=== PATIENT | female | born 1990 | race Caucasian/White ===

== ENCOUNTER 2021-10-02 02:31 | Outpatient (CLI) | payer MEDICAID, SELFPAY | END 2021-10-02 02:32 | disposition home or self-care (01) | LOC: LBO 02:31 | PROVIDERS: Visit Provider Advanced Practice Midwife ==

== ENCOUNTER 2021-10-02 19:10 | Outpatient (REF) | payer MEDICAID, SELFPAY ==
--- NOTE | 2021-10-02 14:30 | PAPFT_PTH ---
PATIENT: Nancy Lindsey LOC: [facility] U#:[id number] AGE/SX: 31/F ROOM: RE10/02/[address]: Dixie Payton CNM : 1990 BED: DIS: 10/02/2021 SPEC #: [id number] RECD: 10/05/21 13:18 STATUS: BLANCA REQ #: [id number] PILLO: 10/02/21 14:[address]: Dixie Payton DEPT: [facility] Cytology RECD BY: Sulema Kumari ENTERED: 10/05/21 13:18 SP TYPE: PAPFT OTHR DR: Unknown,Unknown Tissues: 1 - CX/ENDOCX FOR PAP SMEARS Procedures: PAP THIN PREP/[facility] Screening HPV DNA PROBE Comments: [id number] (CHLAMYDIA/GC)
[2021-10-02 17:52] LABS: *AMPHETAMINES SCREEN URINE Negative (Negative); *BARBITURATES SCREEN URINE Negative (Negative); *BENZODIAZEPINES SCREEN URINE Negative (Negative); Cannabinoids THC Negative (Negative); Cocaine Screen,Urine Negative (Negative); METHADONE URINE SCREEN Negative (Negative); OPIATES URINE SCREEN Negative (Negative)
[2021-10-02 17:55] LABS: Tricyclic Antidepressants Negative (Negative)
[2021-10-07 08:41] LABS: Chlamydia Result Negative (Negative); GC Result Negative (Negative)
[2021-10-08 17:57] LABS: Buprenorphine Negative ng/mL (Cutoff: 5.0); Norbuprenorphine Negative ng/mL (Cutoff: 2.5)
== END 2021-10-02 19:11 | disposition home or self-care (01) ==
LOC: LBN 19:10
PROVIDERS: Visit Provider Advanced Practice Midwife
DX: Z34.91 Encounter for supervision of normal pregnancy, unspecified, first trimester (principal); N89.8 Other specified noninflammatory disorders of vagina; Z3A.12 12 weeks gestation of pregnancy; Z12.4 Encounter for screening for malignant neoplasm of cervix; Z11.51 Encounter for screening for human papillomavirus (HPV); Z11.3 Encounter for screening for infections with a predominantly sexual mode of transmission
CPT/HCPCS: 80307; 87491; 87591; 88142; 87086; 87480; 87510; 87624; 87660

== ENCOUNTER 2021-10-05 01:50 | Outpatient (CLI) | payer MEDICAID, SELFPAY ==
[2021-10-05 16:21] LABS: Kit/Specimen SENT
[2021-10-05 16:31] LABS: Abs Immature Grans 0.03 10^3/uL (0.0-0.06); Absolute Basophil Count 0.03 10^3/uL (0.0-0.2); Absolute Lymphocyte Count 1.71 10^3/uL (1.2-3.4); Absolute Neutrophil Count 7.64 10^3/uL (1.2-6.7); Basophils % 0.3; HCT 35.2 % (36.0-46.0); HGB 11.8 g/dL (11.2-15.7); Immature Grans % 0.3; Lymphocytes % 17.3; MCH 29.8 pg (27.0-33.0); MCHC 33.5 % (32.0-36.0); MCV 89 fL (80-95); MPV 10.3 fL (8.0-11.0); Neutrophils % 77.1; Platelet Count 302 10^3/uL (130-400); RBC 3.96 10^6/uL (3.93-5.22); RDW 11.7 % (11.7-14.6); RDW-SD 37.3 fL; WBC 9.91 10^3/uL (4.4-10.8)
[2021-10-05 17:11] LABS: TSH (W/Ref FT4) 0.26 uIU/mL (0.36-3.74)
[2021-10-05 17:41] LABS: FREE T4 1.11 ng/dL (0.76-1.46)
[2021-10-07 10:20] LABS: Hepatitis B Surface Ag Negative (Negative)
[2021-10-07 11:02] LABS: Hepatitis C Ab w Rflx HCV PCR Negative (Negative)
[2021-10-07 11:17] LABS: HIV-1/2 Ag & Ab Screen Negative (Negative)
[2021-10-07 11:36] LABS: Varicella IgG Antibody Positive (See Note)
[2021-10-07 11:38] LABS: Rubella IgG Ab (UVM) Positive (See Note)
[2021-10-08 18:29] LABS: Syphilis IgG w/Reflex Nonreactive (Nonreactive)
[2021-10-14 01:46] LABS: Result Summary NEGATIVE; Specimen WB Whole Blood
== END 2021-10-05 01:51 | disposition home or self-care (01) ==
LOC: LBO 01:50
PROVIDERS: Visit Provider Advanced Practice Midwife
DX: Z34.91 Encounter for supervision of normal pregnancy, unspecified, first trimester (principal); Z3A.12 12 weeks gestation of pregnancy
CPT/HCPCS: 36415; 86787; 86803; 86850; 86900; 86901; 87340; 87389; 81220; 84439; 84443; 85025; 86762; 86780

== ENCOUNTER → 2021-11-17 00:23 | Outpatient (CLI) | payer MEDICAID, SELFPAY ==
--- NOTE | 2021-11-17 06:45 | DI.US_ITS ---
Exam(s) US OB 2-3 TRIMESTER EXAM: US OB 2-3 TRIMESTER CLINICAL HISTORY: anatomy survey at 18 wks, Z34.90. TECHNIQUE: Transabdominal obstetrical ultrasound performed. COMPARISON: No exams were available for comparison FINDINGS: Number of fetuses: One. position: Variable Placental grade: 1 Placental location: Posterior. No evidence of previa. BIOMETRIC DATA: BPD: 45mm = 19+ 4 weeks HC: 171mm = 19+ 5 weeks AC: 146mm = 19+ 6 weeks FL: 31mm = 19+ 5 weeks Cisterna Magna: 6 mm Cerebellum: 2.0 cm EFW: 311 grms 73% Composite Age: 19+ 5 weeks weeks EDC by US: 08 April 2022 Heart Rate: 157BPM Amniotic fluid : Amount of fluid is within normal limits. ANATOMICAL SURVEY: Four-chambered heart: Unremarkable. LVOT: Unremarkable. RVOT: Unremarkable. Left-sided stomach: Unremarkable. urinary bladder: Unremarkable. Bilateral kidneys: Unremarkable. Three-vessel cord: Unremarkable. Cord insertion: Unremarkable. Umbilical artery velocity: Unremarkable. Posterior fossa:Unremarkable. ventricles: Unremarkable. nose: Unremarkable. lips: Unremarkable. palate: Unremarkable. spine: Unremarkable. Two arms and two legs: Unremarkable. IMPRESSION: 1. size and weight are in the expected range.. 2. Normal anatomic survey. DATA REPOSITORY:
== END ==
PROVIDERS: Visit Provider Advanced Practice Midwife
DX: Z34.92 Encounter for supervision of normal pregnancy, unspecified, second trimester (principal); Z3A.19 19 weeks gestation of pregnancy
CPT/HCPCS: 76805

== ENCOUNTER 2022-01-13 02:41 | Outpatient (CLI) | payer MEDICAID, SELFPAY ==
[2022-01-13 15:33] LABS: HCT 32.5 % (36.0-46.0); HGB 10.6 g/dL (11.2-15.7); MCH 29.9 pg (27.0-33.0); MCHC 32.6 % (32.0-36.0); MCV 92 fL (80-95); MPV 10.2 fL (8.0-11.0); Platelet Count 304 10^3/uL (130-400); RBC 3.55 10^6/uL (3.93-5.22); RDW 12.8 % (11.7-14.6); RDW-SD 42.6 fL; WBC 12.51 10^3/uL (4.4-10.8)
[2022-01-13 15:43] LABS: Glucose,1 Hr (Glucola) 124 mg/dL (80-140)
== END 2022-01-13 02:42 | disposition home or self-care (01) ==
LOC: LBO 02:41
PROVIDERS: Advanced Practice Midwife; Visit Provider Advanced Practice Midwife
DX: Z34.92 Encounter for supervision of normal pregnancy, unspecified, second trimester (principal); Z3A.27 27 weeks gestation of pregnancy
CPT/HCPCS: 36415; 82950; 85027

== ENCOUNTER → 2022-02-09 02:03 | Outpatient (CLI) | payer MEDICAID, SELFPAY ==
--- NOTE | 2022-02-09 07:45 | DI.US_ITS ---
Exam(s) US OB SURESH WEIGHT EXAM: US OB SURESH WEIGHT CLINICAL HISTORY: interval growth,covid,U07.1,O98.513. TECHNIQUE: Transabdominal obstetrical ultrasound performed. COMPARISON: US US OB 2-3 TRIMESTER from 11/17/2021 FINDINGS:: Number of fetuses: One. position: Vertex. Placental location: Anterior no evidence of previa. BIOMETRIC DATA: BPD: 80mm = 32+2 weeks HC: 293mm = 32+2 weeks AC: 283mm = 32+3 weeks FL: 64 mm = 33+1 weeks EFW: 2008 Gms = 81% Composite Age: 30 2+4 weeks EDC: 02 April 2022 Heart Rate: 128BPM Amniotic fluid index: 20.5 Cm. Amount of fluid is visually within normal limits. IMPRESSION: size and weight are within the expected range. DATA REPOSITORY:
== END ==
PROVIDERS: Visit Provider Advanced Practice Midwife
DX: O98.513 Other viral diseases complicating pregnancy, third trimester (principal); U07.1 COVID-19
CPT/HCPCS: 76816

== ENCOUNTER 2022-03-02 09:11 | Outpatient (CLI) | payer MEDICAID, SELFPAY ==
[2022-03-02 14:13] VITALS: BP 117/64; PULSE 77; TEMP 37
[2022-03-02 14:14] VITALS: BP 117/64; PULSE 77
--- NOTE | 2022-03-02 15:50 | W.OBNST ---
Date of service: 03/02/22 Time of Service: 15:50 NST Evaluation Reason for NST Reasons for Nonstress Test: DECREASED MOVEMENT Gestational Age Gestational Age in Weeks and Days: 34 Weeks and 2Days Test and Monitor Explained Test/Monitor Explained: Test Explained, Monitor Explained and Patient Verbalized Understanding Vital Signs Blood Pressure: 117/64 Pulse: 77 Temperature: 98.6 F Urine Results Urine Protein: Negative Urine Ketones: Negative Urine Glucose: Negative Urine Blood: Negative NST Information Date on Monitor: 03/02/22 Time on Monitor: 14:09 Date off Monitor: 03/02/22 Time off Monitor: 14:30 Total Time on Monitor: 21 NST Interventions: None Contraction Frequency: 0 NST Evaluation Patient States Movement: Present FHR Baseline: 130 Variability: Moderate 6-25 bpm Accelerations: 15x15 Decelerations: None NST Results: Reactive Note NST Note Note: NST is reactive and reassuring. Baby is active. Continue present management. CYNTHIA NST Reviewed and Verified by: Belén Boateng
[2022-03-02 15:51] VITALS: BP 117/64; PULSE 77; TEMP 37
== END 2022-03-02 14:33 | disposition home or self-care (01) ==
LOC: BCD 09:13 → OBS 14:05
PROVIDERS: Visit Provider Advanced Practice Midwife
DX: O36.8130 Decreased fetal movements, third trimester, not applicable or unspecified (principal); Z3A.34 34 weeks gestation of pregnancy
CPT/HCPCS: 59025

== ENCOUNTER 2022-03-16 18:59 | Outpatient (REF) | payer MEDICAID, SELFPAY ==
[2022-03-16 17:06] LABS: *AMPHETAMINES SCREEN URINE Negative (Negative); *BARBITURATES SCREEN URINE Negative (Negative); *BENZODIAZEPINES SCREEN URINE Negative (Negative); Cannabinoids THC Negative (Negative); Cocaine Screen,Urine Negative (Negative); METHADONE URINE SCREEN Negative (Negative); OPIATES URINE SCREEN Positive (Negative); Tricyclic Antidepressants Negative (Negative)
[2022-03-25 11:25] LABS: Buprenorphine Negative ng/mL (Cutoff: 5.0); Norbuprenorphine Negative ng/mL (Cutoff: 2.5)
== END 2022-03-16 19:00 | disposition home or self-care (01) ==
LOC: LBN 18:59
PROVIDERS: PCP Advanced Practice Midwife; Visit Provider Advanced Practice Midwife
DX: Z34.93 Encounter for supervision of normal pregnancy, unspecified, third trimester (principal); Z36.85 Encounter for antenatal screening for Streptococcus B; Z3A.36 36 weeks gestation of pregnancy
CPT/HCPCS: 80307; 80348; 87081

== ENCOUNTER 2022-03-23 09:37 | Outpatient (CLI) | payer MEDICAID, SELFPAY ==
[2022-03-23 10:35] VITALS: BP 121/72; PULSE 80; TEMP 37.2
--- NOTE | 2022-03-23 10:53 | W.OBNST ---
Date of service: 03/23/22 Time of Service: 10:30 NST Evaluation Reason for NST Reasons for Nonstress Test: OTHER, SEE COMMENT Reason for NST Other: Low heart rate in office. Gestational Age Gestational Age in Weeks and Days: 37 Weeks and 2Days Test and Monitor Explained Test/Monitor Explained: Test Explained, Monitor Explained and Patient Verbalized Understanding Vital Signs Blood Pressure: 121/72 Pulse: 80 Temperature: 99.0 F Urine Results Urine Protein: Negative Urine Ketones: Negative Urine Glucose: Negative Urine Blood: Negative NST Information Date on Monitor: 03/23/22 Time on Monitor: 09:45 Date off Monitor: 03/23/22 Time off Monitor: 10:30 Total Time on Monitor: 45 NST Interventions: PO Hydration NST Evaluation Patient States Movement: Present FHR Baseline: 130 Variability: Moderate 6-25 bpm Accelerations: 15x15 Decelerations: None NST Results: Reactive Note NST Note Note: NST is reactive and reassuring. I reviewed importance of movement awareness and when to call. RTO as scheduled or prn. NST Reviewed and Verified by: Belén Boateng
[2022-03-23 10:55] VITALS: BP 121/72; PULSE 80; TEMP 37.2
== END 2022-03-23 10:35 | disposition home or self-care (01) ==
LOC: BCD 09:38 → OBS 09:51
PROVIDERS: PCP Advanced Practice Midwife; Visit Provider Advanced Practice Midwife
DX: O36.8330 Maternal care for abnormalities of the fetal heart rate or rhythm, third trimester, not applicable or unspecified (principal); Z3A.37 37 weeks gestation of pregnancy
CPT/HCPCS: 59025

== ENCOUNTER 2022-03-23 14:11 | Outpatient (REF) | payer MEDICAID, SELFPAY ==
[2022-03-23 12:30] LABS: *AMPHETAMINES SCREEN URINE Negative (Negative); *BARBITURATES SCREEN URINE Negative (Negative); *BENZODIAZEPINES SCREEN URINE Negative (Negative); Cannabinoids THC Negative (Negative); Cocaine Screen,Urine Negative (Negative); METHADONE URINE SCREEN Negative (Negative); OPIATES URINE SCREEN Negative (Negative)
[2022-03-23 12:31] LABS: Tricyclic Antidepressants Negative (Negative)
[2022-03-26 12:04] LABS: Buprenorphine Negative ng/mL (Cutoff: 5.0); Norbuprenorphine Negative ng/mL (Cutoff: 2.5)
== END 2022-03-23 14:12 | disposition home or self-care (01) ==
LOC: LBN 14:11
PROVIDERS: PCP Advanced Practice Midwife; Visit Provider Advanced Practice Midwife
DX: Z34.93 Encounter for supervision of normal pregnancy, unspecified, third trimester (principal)
CPT/HCPCS: 80307; 80348

== ENCOUNTER 2022-04-01 21:40 | Outpatient (CLI) | payer MEDICAID, SELFPAY ==
[2022-04-01 18:59] VITALS: BP 121/67; PULSE 88; RESP 20; TEMP 36.8; O2SAT 98
[2022-04-01 19:00] VITALS: BP 121/67; PULSE 88; TEMP 36.8
--- NOTE | 2022-04-01 19:33 | NUR.NOTE ---
VE by handbook writer /-1 very soft cervix. Pain of contractions has lessened. Will recheck cervix at 2114. CNM made aware of assessment. Pt verbalized understanding of recheck status, and states since her pain has decreased now she is willing to go home after the next VE. At this time, boyfriend is getting food and pt is going to attempt a nap.Nursing Note:
--- NOTE | 2022-04-02 08:01 | PDOC.NST_ITS ---
Date of service: 04/01/22 Time of Service: 21:00 NST Evaluation Reason for NST Reasons for Nonstress Test: FALSE LABOR Gestational Age Gestational Age in Weeks and Days: 38 Weeks and 4Days Test and Monitor Explained Test/Monitor Explained: Test Explained Vital Signs Blood Pressure: 121/67 Pulse: 88 Temperature: 98.2 F NST Information Date on Monitor: 04/01/22 Time on Monitor: 18:48 Date off Monitor: 04/01/22 Time off Monitor: 19:18 Total Time on Monitor: 30 NST Interventions: None NST Evaluation Patient States Movement: Present FHR Baseline: 145 Variability: Moderate 6-25 bpm Accelerations: 15x15 Decelerations: None NST Results: Reactive Note NST Note Note: Nancy reported painful contractions at home. Upon arrival for NST, her contractions lessened in intensity. Cervical exam by RN 1 cm/-2 station. She was rechecked later and there was no cervical change. Reactive NST. Signs of labor reviewed. Follow u at [facility]. NST Reviewed and Verified by: Belén Manzo
[2022-04-02 08:03] VITALS: BP 121/67; PULSE 88; TEMP 36.8
== END 2022-04-01 21:41 | disposition home or self-care (01) ==
PROVIDERS: PCP Advanced Practice Midwife; Visit Provider Advanced Practice Midwife
DX: O47.1 False labor at or after 37 completed weeks of gestation (principal); Z3A.38 38 weeks gestation of pregnancy
CPT/HCPCS: 59025

== ENCOUNTER 2022-04-13 10:39 | Outpatient (CLI) | payer MEDICAID, SELFPAY ==
[2022-04-13 10:50] VITALS: BP 114/75; PULSE 71; TEMP 36.9
[2022-04-13 11:14] VITALS: BP 114/75; PULSE 71
--- NOTE | 2022-04-13 11:33 | W.OBNST ---
Date of service: 04/13/22 Time of Service: 11:33 NST Evaluation Reason for NST Reasons for Nonstress Test: DECREASED MOVEMENT Gestational Age Gestational Age in Weeks and Days: 40 Weeks and 2Days Test and Monitor Explained Test/Monitor Explained: Test Explained, Monitor Explained and Patient Verbalized Understanding Vital Signs Blood Pressure: 114/75 Pulse: 71 Temperature: 98.4 F NST Information Date on Monitor: 04/13/22 Time on Monitor: 10:50 Date off Monitor: 04/13/22 Time off Monitor: 11:17 Total Time on Monitor: 27 NST Interventions: PO Hydration Contraction Frequency: 1 in 10 NST Evaluation Patient States Movement: Present FHR Baseline: 125 Variability: Moderate 6-25 bpm Accelerations: 15x15 Decelerations: None NST Results: Reactive Note NST Note Note: Pt to return at 41 wks for NST and fluid check Cvx in office today 3 cm NST Reviewed and Verified by: Dixie Payton
[2022-04-13 11:34] VITALS: BP 114/75; PULSE 71; TEMP 36.9
== END 2022-04-13 11:20 | disposition home or self-care (01) ==
LOC: BCD 10:40 → OBS 10:49
PROVIDERS: PCP Advanced Practice Midwife; Visit Provider Advanced Practice Midwife
DX: O36.8130 Decreased fetal movements, third trimester, not applicable or unspecified (principal); Z3A.40 40 weeks gestation of pregnancy
CPT/HCPCS: 59025

== ENCOUNTER 2022-04-18 10:13 | Inpatient (IN) | payer MEDICAID, SELFPAY ==
[2022-04-18] VITALS (75 sets, daily range): BP systolic 83–146; BP diastolic 44–78; PULSE 58–103; RESP 16–18; TEMP 36.4–36.8; O2SAT 94–100; BMI 72.6
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
[2022-04-18] MEDS: Normal Saline Flush 10 ML SYR IVP (10:30)
[2022-04-18] MEDS: Lactated Ringers 1,000 ML 125 ML IV (10:51)
[2022-04-18 10:52] LABS: Source Nasal/Nares
[2022-04-18 10:55] LABS: HCT 41.8 % (36.0-46.0); HGB 13.4 g/dL (11.2-15.7); MCH 29.2 pg (27.0-33.0); MCHC 32.1 % (32.0-36.0); MCV 91 fL (80-95); MPV 11.2 fL (8.0-11.0); Platelet Count 296 10^3/uL (130-400); RBC 4.59 10^6/uL (3.93-5.22); RDW 12.8 % (11.7-14.6); RDW-SD 41.8 fL; WBC 15.34 10^3/uL (4.4-10.8)
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
[2022-04-18 11:31] LABS: COVID-19 PCR Negative (Negative)
--- NOTE | 2022-04-18 11:33 | PGE_ITS ---
Date of service: 04/18/22 Time of Service: 11:33 Informed Consent Informed Consent: Risk,Benefits,Alternatives Discussed (IV access and vaginal delivery) Pelvic Exam Dilation: 9 Effacement (%): 100 station: 0 Comments: exam was done prior to LIBRARY ACQUISITIONS TECHNICIAN going into room, intrathecal was requested due to close to delivery. KH Contractions Monitor Mode: Palpation Contraction Frequency(min): 2-4 Contraction Duration(sec): 60-90 Intensity: Strong Fetus A Monitor: External (US) Heart Rate Baseline: 120 Presentation: Cephalic Variability: Moderate (6-25 BPM) Categories: Category I Accelerations: 15 X 15 Decelerations: None Assessment and Plan Assessment and plan (1) Normal labor: Status: Acute Assessment and plan: 1. Patient was admitted at 7cm and has progressed to 9cm. she received intrathecal analgesia and is comfortable 2. expect NVD, low risk for shoulder dystocia, pre-eclampsia or PPH 3. Will use active management of third stage with IV pitocin once head delivers Objective Abnormal lab results 04/18/22 Range/Units 10:40 WBC 15.34 H (4.4-10.8) 10^3/uL MPV 11.2 H (8.0-11.0) fL Pulse Resp BP Pulse Ox 81 18 111/61 100 04/18/22 11:32 04/18/22 10:30 04/18/22 11:32 04/18/22 11:31 Laboratory Results WBC 15.34 10^3/uL (4.4-10.8) H 04/18/22 10:40 RBC 4.59 10^6/uL (3.93-5.22) 04/18/22 10:40 Hgb 13.4 g/dL (11.2-15.7) 04/18/22 10:40 Hct 41.8 % (36.0-46.0) 04/18/22 10:40 MCV 91 fL (80-95) 04/18/22 10:40 MCH 29.2 pg (27.0-33.0) 04/18/22 10:40 MCHC 32.1 % (32.0-36.0) 04/18/22 10:40 RDW 12.8 % (11.7-14.6) 04/18/22 10:40 Plt Count 296 10^3/uL (130-400) 04/18/22 10:40 MPV 11.2 fL (8.0-11.0) H 04/18/22 10:40 COVID-19 Source Nasal/Nares 04/18/22 10:45 Patient ABO/Rh A Positive 04/18/22 10:40 Antibody Screen NEGATIVE 04/18/22 10:40 Vital Signs Reviewed: Yes Subjective Interval history since last seen: much more comfortable since intrathecal in past 20 minutes. She denies urge to push at this time and would like a short rest before delivery. KH Interventions Pain Management Interventions: Intrathecial. Results Hemoglobin/Hematocrit: Hgb 13.4 g/dL (11.2-15.7) 04/18/22 10:40 Hct 41.8 % (36.0-46.0) 04/18/22 10:40 Abnormal Lab Findings: Abnormal Labs 04/18/22 10:40 WBC 15.34 H MPV 11.2 H
[2022-04-18] MEDS: Bupivacaine 0.25% Pres-Free 10 ML VIAL (11:35)
[2022-04-18] MEDS: fentaNYL 100 MCG/2 ML VIAL (11:36)
--- NOTE | 2022-04-18 11:49 | W.ANESPROC ---
Intrathecal Analgesia Date Performed: 04/18/22 Procedure Time: 11:33 Requesting Provider: Belén Boateng Procedure Location: Obstetrics Reason Performed: Labor Intrathecal Analgesia Standard Monitors Applied: ECG, Blood Pressure and SpO2 Patient Position: Sitting Timeout Performed: Yes Sedation Given (Indicate Dose Given): No Sedation given Patient Mental Status: Awake Sterility: Hand Hygiene, Surgical Cap, Surgical Mask, Sterile Gloves, Sterile Drape/Sheet, Eye Protection and Chlorhexidine Placement Site: L3-L4 Interspace Spinal Needle Type: Jonah 25 Gauge Needle Length: 3.5 Inch Spinal Procedure: Site Prepped, Sterile Drape Placed, 1% Lidocaine to skin and subcutaneous tissue with 25G needle, Introducer Needle Used, Spinal Needle Placed, Negative Heme, Positive CSF Flow and Medication Injected Paresthesia: None Spinal Local Anesthetic (Indicate Dose Given): Bupivacaine 0.25% PF (ml) Dose:: 1 cc Additives (Indicate Dose Given): Fentanyl PF Dose:: 15 mcg and Duramorph PF Dose:: 200 mcg Ultrasound: Not Used Number of Attempts (See previous attempts in note section): 1 Procedure Tolerated: No Complications and Patient tolerated well Procedure Outcome: Successful Performed By: Ramirez Zuleta
[2022-04-18] MEDS: Oxytocin/Normal Saline 30 UNITS/500 ML BAG 95 UNITS IV (14:07)
--- NOTE | 2022-04-18 14:33 | OBVDS_ITS ---
Date of service: 04/18/22 Time of Service: 14:34 OB Labor/ Delivery Information Baby A Delivery Delivery Method: Spontaneaous Presentation: Cephalic Cephalic Position: Vertex Vertex Position: Right Occipital Anterior Cord Description-Baby A: 3 Vessels and Clamped/Cut (after 2 minutes of delayed cord clamping) Amniotic Fluid: Meconium (thin light brown fluid) Estimated Blood Loss: 325 Delivery Outcome: Liveborn Transferred: Remains with Mother Note: Nancy presented with active labor. Contractions began approximately 0300 and she presented at 10 am 7cm dilated. Labor progressed and she had intrathecal analgesia by GRANULATOR OPERATOR per her request. After a 45 minute rest period following intrathecal and stabilization she was found to be 10cm 0 station at 1305. Second stage huddle was done and patient began pushing. FHR was CAT I throughout first stage of labor. Baby girl Trena presented CALEB and delivered into her Father's hands with CNM guidance at 1400 over intact perineum. Baby was placed skin to skin on Mother's chest. One minute of 8. Cord was double clamped and then cut by Iggy (FOB) after 2 minutes of delayed cord clamping. There was lengthening of cord and small gush of blood, placenta delivered with gentle mate rnal pushing effort at 1409, intact. 5 minute was 9. Baby's weight is 8lb 5oz or 3775 gm. Ember will be breast fed. Nancy and Iggy are planning tubal ligation for PP contraception at 6 weeks PP. Expect normal PP course. perienum and vagina inspected and no bleeding lacerations noted, there is an abrasion that is hemostatic and left unrepaired. Providers Nurse Pipe Fitter Fire Sprinkler Systems: Belén Boateng Clinical Informatics Spec: Ramirez Zuleta Nurse: Tierney Pathak Nurse: Sarika Payton Labor/Delivery Information Number of Babies in Womb: 1 Steroids Given: None Reason Steroids Not Administered: N/A Group Beta Strep: Negative Antibiotics Administered: No Rubella Status: Immune Blood Type: A+ Varicella Immunity: Immune Maternal Complications: None Shoulder Dystocia: Yes Stages of Labor Onset of Labor Date: 04/18/22 Onset of Labor Time: 08:00 Complete Dilatation Date: 04/18/22 Complete Dilatation Time: 13:05 Labor - Stage 1 Duration: 5 hours and 5 minutes ROM Baby A: 04/18/22 ROM Baby A: 13:53 ROM Total Time- Baby A: [id number] Infant Delivery Date-Baby A: 04/18/22 Delivery Time-Baby A: 14:00 Labor Stage 2 Duration: 55 minutes Placenta Delivery Date-Baby A: 04/18/22 Placenta Delivery Time-Baby A: 14:09 Labor-Stage 3 Duration: 9 minutes Total Length of Labor-Baby A: 6 hours and 0 minutes Placenta Cultured: No Placenta Status: Delivered Baby A Infant Gender: Female Gestational Status: Term (39-41.6 wks) Gestational Age in Weeks/Days: 41 Weeks and 0 Days weight: 8 lb 5.159 oz Score-1 Minute Interval(Baby A) Heart Rate-1 minute: 100 BPM or Greater Respiratory Effort- 1 minute: Spontaneous/Strong Cry Muscle Tone-1 minute: Active Movement Reflex Response-1 minute: Prompt Response Color-1 minute: Pallor or Cyanosis Total Score-1 minute: 8 Score-5 Minute Interval(Baby A) Heart Rate- 5 minute: 100 BPM or Greater Respiratory Effort-5 minute: Spontaneous/Strong Cry Muscle Tone-5 minute: Active Movement Reflex Response-5 minute: Prompt Response Color-5 minute: Bluish Hands or Feet Total Score- 5 minute: 9
[2022-04-18] MEDS: buPROPion-CR 100 MG TABCR PO (19:31)
[2022-04-18] MEDS: Ondansetron O.D.T. 4 MG TABEF PO (19:55)
--- NOTE | 2022-04-18 20:34 | NUR.NOTE ---
Nursing Note: Pt ambulated to BR with contact assist. SLightly dizzy per pt. Pt voided droplets only. Pt statesI feel like I'm almost there. This RN agreed to give pt 1 more hour t=then after the next attempt she will need to have her bladder emptied via catheter. FF 1 above U midline.
[2022-04-19] VITALS: BP 113/57; PULSE 68; RESP 16; TEMP 36.7
--- NOTE | 2022-04-19 06:10 | W.ANESPOSTOP ---
Postoperative Evaluation Date, Time and Location Date Performed: 04/18/22 Time Performed: 20:09 Patient Location: Obstetrics Vital Signs Most Recent Imported Vital Signs: Most Recent Vital Signs Temp Pulse Resp BP Pulse Ox 36.7 C 68 16 113/57 L 97 04/19/22 00:00 04/19/22 00:00 04/19/22 00:00 04/19/22 00:00 04/18/22 20:00 Pain Score Most Recent Pain Score: Most Recent Pain Score Pain Level [Abdomen] 0 04/19/22 00:00 Assessment Mental Status: Awake (Alert & Oriented to Patient Baseline) Airway and Respiratory Function: Patent airway with normal (patient baseline) respiratory exam Cardiovascular Function: Hemodynamically Stable Hydration Status: Adequately Hydrated Nausea & Vomiting: No Nausea or Vomiting Pain: Pt. Denies Any Pain Peripheral Nerve Block: Patient did not receive a nerve block
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
[2022-04-19 10:06] VITALS: BP 112/63; PULSE 74; RESP 18; TEMP 37
== END 2022-04-19 16:00 | disposition home or self-care (01) | DRG 807 ==
LOC: OBS 10:42
PROVIDERS: Admitting Provider Advanced Practice Midwife; PCP Advanced Practice Midwife; Visit Provider Advanced Practice Midwife
DX: O75.89 Other specified complications of labor and delivery (principal); Z37.0 Single live birth; Z3A.41 41 weeks gestation of pregnancy; O77.0 Labor and delivery complicated by meconium in amniotic fluid; K42.9 Umbilical hernia without obstruction or gangrene; O99.334 Smoking (tobacco) complicating childbirth; O99.344 Other mental disorders complicating childbirth; F41.8 Other specified anxiety disorders; Z86.16 Personal history of COVID-19
CPT/HCPCS: 85027; 86850; 86900; 86901; 87635; J2405; J3010

== ENCOUNTER 2022-07-19 02:37 | Outpatient (CLI) | payer MEDICAID, SELFPAY ==
[2022-07-19 10:42] LABS: HCT 39.6 % (36.0-46.0); HGB 12.6 g/dL (11.2-15.7); MCH 28.3 pg (27.0-33.0); MCHC 31.8 % (32.0-36.0); MCV 89 fL (80-95); MPV 10.1 fL (8.0-11.0); Platelet Count 311 10^3/uL (130-400); RBC 4.46 10^6/uL (3.93-5.22); RDW 12.7 % (11.7-14.6); RDW-SD 41.5 fL; WBC 7.03 10^3/uL (4.4-10.8)
[2022-07-19 11:15] LABS: Anion Gap 6.7 mmol/L (3-11); CO2 30.3 mmol/L (21.0-32.0); Chloride 105 mmol/L (98-107); Potassium 4.1 mmol/L (3.5-5.1); Sodium 142 mmol/L (136-145)
[2022-07-19 11:49] LABS: HCG Qual (Serum) Negative
== END 2022-07-19 02:38 | disposition home or self-care (01) ==
LOC: LBO 02:37
PROVIDERS: PCP Advanced Practice Midwife; Visit Provider Obstetrics & Gynecology Gynecology
DX: Z01.818 Encounter for other preprocedural examination (principal)
CPT/HCPCS: 36415; 80051; 85027; 86850; 86900; 86901; 84703

== ENCOUNTER 2022-07-21 06:20 | Day surgery (SDC) | payer MEDICAID, SELFPAY ==
[2022-07-21] VITALS (11 sets, daily range): BP systolic 93–114; BP diastolic 42–75; PULSE 56–76; RESP 16–23; TEMP 36.3–36.7; O2SAT 95–100; BMI 29.7
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
[2022-07-21] MEDS: Acetaminophen 500 MG TAB 1000 MG PO (06:44)
[2022-07-21] MEDS: Gabapentin 300 MG CAP 600 MG PO (06:44)
[2022-07-21] MEDS: Lactated Ringers 1,000 ML 125 ML IV (06:50)
[2022-07-21] MEDS: ceFAZolin 2 GM/50 ML BAG IVPB (07:50)
--- NOTE | 2022-07-21 08:20 | FALL_PTH ---
PATIENT: Nancy Lindsey LOC: [facility] U#:[id number] AGE/SX: 32/F ROOM: RE07/21/[address]: Radha Oliva : 1990 BED: DIS: 07/21/2022 SPEC #: [id number] RECD: 07/21/22 12:21 STATUS: BLANCA REGabby #: [id number] PILLO: 07/21/22 08:[address]: Radha Oliva DEPT: Surgical Specimen RECD BY: Sulema Kumari ENTERED: 07/21/22 12:23 SP TYPE: Fall OTHR DR: Belén Boateng CNM Tissues: 1 - FALLOPIAN TUBE (STERILIZATION) 2 - FALLOPIAN TUBE (STERILIZATION) Procedures: GROSS AND MICRO LEVEL 2 Comments: [id number]
[2022-07-21] MEDS: Bupivacaine 0.25% Pres-Free 30 ML VIAL (08:33)
--- NOTE | 2022-07-21 08:55 | W.PM.DSUDISC ---
Discharge Plan Disposition Patient Disposition: Home Discharge Details Attending Provider: Radha Oliva Primary Care Provider: Belén Boateng Home Meds and New Rx's Prescriptions: No Action bupropion HCl [Wellbutrin SR] 100 mg tablet sustained-release 12 hr See Rx Instructions PO BID Rx Instructions: orally twice a day; 200 mg a.m. and 100 mg in p.m. vit,graciela [id number] 27 mg iron- 1 mg Tablet 1 tab PO DAILY Discharge Instructions Additional Instructions: With regards to your belly button hernia repair: 1. It is okay to use tylenol and ibuprofen over the counter as needed for your pain. 2. Heating pads and ice packs will also be helpful for discomfort. 3. Leave bandage in place for 24 hours, then remove. 4. Shower with warm soapy water. Pat dry. Use a bandaid if needed to protect your clothing. 5. No soaking or tub baths until I see you in the office. 6. Do not lift anything greater than 10 pounds until you are seen in the office. You have an appointment set up with Dr. Oliva on August 05 at 120. I can follow-up with you at that visit. 7. Call the office (or go directly to the emergency room after hours) if you notice any of the following: Develop chills (warm to touch), or if you have a thermometer and your temperature is above 101 Difficulty breathing or difficultly swallowing Persistent vomiting Any bleeding ? exceeding one tablespoon 8. Call your physician if the site where your intravenous was started becomes red, swollen, painful, and warm to touch.
--- NOTE | 2022-07-21 08:59 | W.PM.DSUDISC ---
Date of service: 07/21/22 Time of Service: 08:59 Discharge Plan Disposition Patient Disposition: Home Condition: Good Discharge Details Reason For Visit: Umbilical hernia, tubal sterilization Attending Provider: Radha Oliva Primary Care Provider: Belén Boateng Home Meds and New Rx's Prescriptions: No Action bupropion HCl [Wellbutrin SR] 100 mg tablet sustained-release 12 hr See Rx Instructions PO BID Rx Instructions: orally twice a day; 200 mg a.m. and 100 mg in p.m. vit,graciela [id number] 27 mg iron- 1 mg Tablet 1 tab PO DAILY Discharge Instructions Additional Instructions: Keep your appointments that have been scheduled with Dr. Oliva and Dr. Dunn With regards to your belly button hernia repair: 1. It is okay to use tylenol and ibuprofen over the counter as needed for your pain. 2. Heating pads and ice packs will also be helpful for discomfort. 3. Leave bandage in place for 24 hours, then remove. 4. Shower with warm soapy water. Pat dry. Use a bandaid if needed to protect your clothing. 5. No soaking or tub baths until I see you in the office. 6. Do not lift anything greater than 10 pounds until you are seen in the office. You have an appointment set up with Dr. Oliva on August 05 at 120. I can follow-up with you at that visit. 7. Call the office (or go directly to the emergency room after hours) if you notice any of the following: Develop chills (warm to touch), or if you have a thermometer and your temperature is above 101 Difficulty breathing or difficultly swallowing Persistent vomiting Any bleeding ? exceeding one tablespoon 8. Call your physician if the site where your intravenous was started becomes red, swollen, painful, and warm to touch. Stand Alone Forms: DSU Post Digital Project Coordinator SurgeryW/Incision Activity:: Activity as Tolerated Remove Dressings/Wound Care:: 48 hours Shower/Bathe:: 24 hours Diet:: As Tolerated Discharge Orders Discharge Orders: Discharge Order (Routine); Ordered 07/21/22 Ordered By: Radha Oliva DS: Diagnosis Discharge Diagnosis (1) Request for sterilization: Status: Acute (2) History of salpingectomy: Status: Acute (3) Umbilical hernia: Status: Acute
[2022-07-21] MEDS: fentaNYL 100 MCG/2 ML VIAL IVP (09:19)
--- NOTE | 2022-07-21 10:42 | W.ANESPOSTOP ---
Postoperative Evaluation Date, Time and Location Date Performed: 07/21/22 Time Performed: 10:42 Patient Location: Day Surgery Unit Vital Signs Most Recent Imported Vital Signs: Most Recent Vital Signs Temp Pulse Resp BP Pulse Ox 36.5 C 76 18 102/73 97 07/21/22 10:34 07/21/22 10:34 07/21/22 10:34 07/21/22 10:34 07/21/22 10:34 Pain Score Most Recent Pain Score: Most Recent Pain Score Pain Level 3 07/21/22 10:36 Assessment Mental Status: Awake (Alert & Oriented to Patient Baseline) Airway and Respiratory Function: Patent airway with normal (patient baseline) respiratory exam Cardiovascular Function: Hemodynamically Stable Hydration Status: Adequately Hydrated Nausea & Vomiting: No Nausea or Vomiting Pain: Pain is tolerable per patient Peripheral Nerve Block: Patient did not receive a nerve block Postoperative Comments:: Questions answered regarding breast feeding after anesthesia.
[2022-07-21] MEDS: HYDROcodone 5/Acetaminophen 325 TAB PO (11:14)
--- NOTE | 2022-07-21 13:32 | ROE_ITS ---
Date of service: 07/21/22 Time of Service: 13:32 Operative Note Operative Note DATE OF PROCEDURE: 07/21/22 PRE-OP DIAGNOSIS: 1. Undesired fertility 2. umbilical hernia PROCEDURE: Laparoscopic bilateral salpingectomy followed by a umbilical hernia repair with mesh placement. SURGEON: Radha Oliva ASSISTING SURGEON: Sara Franco AEROSPACE PROJECT MANAGER: Raj Dunn Refer to Anesthesia Record ESTIMATED BLOOD LOSS: 10 PATHOLOGY: other (Bilateral fallopian tubes to pathology) COMPLICATIONS: None Patient was transported to: PACU Patient's condition: stable Implants: Mesh at umbilical hernia repair site Indications: ?32yo G4, P2 female who was seen in May and scheduled for laparoscopic bilateral salpingectomy for the purpose of sterilization. She developed asymptomatic umbilical hernia prior to her scheduled sterilization. Decision was made to proceed with a joint procedure with the initial bilateral salpingectomy followed by hernia repair performed by Dr. Dunn. Findings: I will let Dr. Dunn describe in detail the appearance of the hernia sac. On laparoscopy patient had normal-appearing fallopian tubes uterus and ovaries. Upper abdomen was normal. Appendix was not visualized. Procedure Description: Patient was taken to the operating room where she was placed in the dorsal supine position and endotracheal anesthesia was administered without difficulty. SCDs were in place. A surgical timeout was performed. She was prepped and draped in the usual sterile fashion. Dr. Dunn performed the initial entry into the abdomen where the and and subcutaneous tissue beneath the umbilicus was infiltrated with 0.25% Marcaine without epinephrine and 12 mm elliptical skin incision below the umbilicus was made using a scalpel. Dr. Dunn proceeded to dissect to the level of the rectus fascia and the rectus fascia was then opened with curved Carlson scissors and through the incision a 12mm Visiport was placed under direct observation. Dr. Dunn then left the OR and the remainder the case was performed by Dr. Franco. A pneumoperitoneum was then achieved and the patient placed in Trendelenburg position. 2 sites on the abdomen approximately 6 cm diagonal to the right of and left of the umbilical incision were transilluminated, the skin infiltrated with 0.25% Marcaine and incised with a scalpel and under diirect visualization two 5 mm ports were placed in the right and left lower quadrants respectively. The abdomen was inspected with the above-noted findings. The left fallopian tube located and followed out to its fimbriated end and a LigaSure electrocautery device was used to clamp cauterize and transect the fimbria from the left mesosalpinx to the level of the left uterine cornua. The left fallopian tube was then delivered through the 10 mm umbilical port and passed off of the operative field. A similar technique was carried out on the right fallopian tube without difficulty. The right fallopian tube was then delivered through the umbilical port. Both fallopian tube pedicles were inspected and noted to be hemostatic. Under direct visualization the two 5 mm ports were removed, pneumoperitoneum reduced, and the umbilical port removed. Both 5 mm lower port sites were reapproximated with a 4-[address] Dunn returned to the OR and I will have him dictate the remainder of the case.
--- NOTE | 2022-07-21 14:00 | W.PM.OP ---
Date of service: 07/21/22 Time of Service: 08:51 Operative Note Operative Note DATE OF PROCEDURE: 07/21/22 PRE-OP DIAGNOSIS: Umbilical hernia POST-OP DIAGNOSIS: same PROCEDURE: Open umbilical herniorrhaphy with mesh SURGEON: Raj Dunn ANESTHESIA TYPE: Local By Surgeon and General LMA/ETT Refer to Anesthesia Record ESTIMATED BLOOD LOSS: 10 COMPLICATIONS: None Patient was transported to: other (Patient left in the care of Dr. Oliva) Patient's condition: stable Implants: Ventralex ST hernia patch Indications: Nancy is a 32-year-old woman who is undergoing elective bilateral salpingectomy for permanent sterilization. Incidentally, she has a painful umbilical hernia Findings: Umbilical hernia with greater omentum Procedure Description: After the induction of general endotracheal anesthesia, the patient was prepped and draped in the usual fashion for bilateral salpingectomy. Prior to the procedure, routine timeout was conducted to ensure the appropriate patient, procedure, and instrumentation. I started by establishing a generous field block using local anesthetic in the umbilical position. Next, I made a semielliptical incision along the inferior margin of the umbilicus. I dissected down to the fascia which I grasped with a Naresh clamp. I then dissected the umbilical stalk off of the underside of the hernia sac. The sac was opened, and continued greater omentum. I reduced this into the peritoneal cavity. Next, I gently advanced a 12 mm operative port into the umbilical position and secured it in place with an 0 Vicryl suture. At this point, I turned the conduct of the operation over to Dr. Oliva, and I left the operating room. Once the salpingectomy was completed, I rejoined the operation. All of the other port sites had been previously closed. I then completed dissection of the umbilical ring. I took great care to ensure that the underside of the ring was clear and free of adhesions. I then delivered a Ventralex ST hernia patch into the cell rectus position. I affixed it to the fascia with interrupted Prolene sutures. I then closed the fascia longitudinally over the hernia patch. Next, I pexied the underside of the umbilicus down onto the fascia with a Vicryl stitch. The surgical site was then irrigated. It was hemostatic. I closed the skin with interrupted Monocryl sutures. Again, I turned the care of the patient back over to Dr. Oliva for final dressings, and I exited the operating room.
== END 2022-07-21 11:35 | disposition home or self-care (01) ==
PROVIDERS: Surgery; PCP Advanced Practice Midwife; Visit Provider Obstetrics & Gynecology Gynecology
PROC: (CPT 58661; principal; 2022-07-21 07:30)
PROC: (CPT 49591; 2022-07-21 07:30)
DX: Z30.2 Encounter for sterilization (principal); K42.9 Umbilical hernia without obstruction or gangrene
CPT/HCPCS: 58661; 49591; 88302; C1781; J0690; J1100; J1885; J2250; J2405; J2704; J3010